=== PATIENT | female | born 1995 | race Caucasian/White ===

== ENCOUNTER 2017-08-13 14:28 | Emergency (ER) | payer OTHER ==
[~2017-08-13] VITALS: Ht 162.6 cm; Wt 51.7 kg
[2017-08-13] MEDS ORDERED: ALBUTEROL SULF8.5 GM INH (14:59)
[2017-08-13] MEDS ORDERED: PSEUDOEPHEDRINE30 MG PO (14:59)
[2017-08-13] MEDS ORDERED: AMOXICILLIN500 MG ORAL (14:59)
--- NOTE | 2017-08-13 14:59 | Emergency Room Report ---
History of Present Illness General Chief Complaint: Sore Throat Source: Patient Present Illness HPI 21 yo female patient presents to ER complaining of fever, congestion, and sore throat x3days. Patient reports hx of fever to 101 this morning; denies use of Tylenol or Ibuprofen. Reports taking seng-seltzer for relief of symptoms. Patient reports coughing up phlegm during this time. Denies blood in sputum. Patient reports hx of sick contacts Reports hx of asthma; denies recent exacerbation of symptoms; denies wheezing or breathing difficulty; denies use of medication, states she does not have an inhaler. Denies nausea, diarrhea, chest pain. Allergies: Coded Allergies: No Known Allergies (Unverified , 08/13/17) Patient History Past Medical History: see triage record Last Menstrual Period: a month ago Now: No Reviewed Nursing Documentation: PMH: Agreed, PSxH: Agreed Nursing Documentation-PMH Past Medical History: No History, Except For Hx Asthma: Yes Review of Systems All Other Systems: negative except mentioned in HPI Physical Exam Vital Signs Date Time Temp Pulse Resp B/P (MAP) Pulse Ox O2 Delivery O2 Flow Rate FiO2 08/13/17 14:35 99.4 100 18 122/80 96 Room Air 99.3 Sp02 EP Interpretation: reviewed, normal General Appearance: well appearing, no apparent distress, alert, GCS 15, non- toxic Head: normocephalic, atraumatic Eyes: bilateral eye normal inspection, bilateral eye PERRL ENT: hearing grossly normal, normal pharynx, no angioedema, normal voice, TMs + canals normal, uvula midline, nasal congestion, pharyngeal erythema, tonsillar exudate - white Neck: full range of motion Respiratory: chest non-tender, normal breath sounds, no respiratory distress, no retraction, no accessory muscle use, no wheezing, rhonchi - intermittent, other - no stridor Cardiovascular #1: regular rate, rhythm, no edema Gastrointestinal: non tender, soft, no mass, non-distended Musculoskeletal: back normal, digits/nails normal, gait/station normal, normal range of motion, no calf tenderness Neurologic: alert, oriented x3, responsive, motor strength/tone normal, normal gait Psychiatric: mood/affect normal Skin: no rash Lymphatic: adenopathy Medical Decision Making PA Attestation Dr. Alfredo is my supervising Physician whom patient management has been discussed with. Diagnostic Impression: Primary Impression: Pharyngitis Additional Impression: Nasal congestion ER Course Pt presents to ED c/o sore throat and fever. DDX considered but are not limited to pharyngitis, laryngitis, URI, peritonsillar abscess, tonsillitis, rhinitis, sinusitis. VITAL SIGNS are WNL, patient is afebrile. ORDERS: None required at this time, diagnosis is clinical. ED INTERVENTIONS: Non required at this time. Discuss physical exam findings with patient and aunt, will treat for pharyngitis , provide abx for treatment. Discuss like etiology of nasal congestion symptoms use of OTC medications for symptomatic relief. Informed patient no difficulty breathing, rhonchi likely due to congestion symptoms. No wheezing, no respiratory distress. Patient declined breathing treatment. Instructed patient to use inhaler at home for breathing difficulties. DISCHARGE: -Rx given for Amoxicillin -Rx given for Albuterol -Rx given for Sudafed Declined prescription for Tylenol or Afrin nasal spray; stated will purchase over the counter. At this time pt is stable for d/c to home. Patient is resting comfortably, in no acute distress, nontoxic appearing, smiling and laughing. Will provide with patient care instructions and any necessary prescriptions. Patient to take medication as instructed. Care plan and follow-up instructions provided. Patient questions asked and answered. Patient reports understanding and agreement to treatment plan. Patient instructed to follow-up with primary care provider in 3 - 5 days. ER precautions given. Patient instructed to return to ER immediately for any new or worsening of symptoms. Last Vital Signs Date Time Temp Pulse Resp B/P (MAP) Pulse Ox O2 Delivery O2 Flow Rate FiO2 08/13/17 14:35 99.4 100 18 122/80 96 Room Air 99.3 Disposition: HOME, SELF-CARE Condition: Stable Scripts Pseudoephedrine Hcl* (SUDAFED*) 30 Mg Tablet 30 MG PO Q6H for 5 Days, #20 TAB Prov: Orlando Starr 08/13/17 Albuterol Sulfate* (ALBUTEROL SULFATE MDI*) 8.5 Gm Hfa.aer.ad 2 PUFF INH Q6H, #1 INH 0 Refills Prov: Orlando Starr 08/13/17 Amoxicillin* (AMOXIL*) 500 Mg Capsule 500 MG ORAL EVERY 8 HOURS for 7 Days, #21 CAP Prov: Orlando Starr 08/13/17 Patient Instructions: Allergic Rhinitis, Pharyngitis, [id number] Additional Instructions: Followup with primary care provider in 3 -5 days. Use Flonase OTC for nasal congestion; do not use longer than 3 days. Use albuterol for breathing symptoms. Use Tylenol OTC for pain and fever symptoms. Take medications as directed. Patient questions asked and answered. ER precautions given, patient instructed to return to ER immediately for any new or worsening of symptoms. Orlando Starr Aug 13, 2017 14:59
[2017-08-13 15:36] VITALS: BP 127/78
== END 2017-08-13 15:05 | disposition home or self-care (01) ==
LOC: EMR 14:57
DX: J06.9 Acute upper respiratory infection, unspecified (principal); R09.81 Nasal congestion; J45.909 Unspecified asthma, uncomplicated
CPT/HCPCS: 99284